=== PATIENT | female | born 1960 | race African-American/Black ===

== ENCOUNTER → 2018-02-22 | Day surgery (SDC) | payer BC ==
[~2018-02-22] MED LIST: LIDOCAINE 1% PF 2 ML VIAL. ID PRN; MIDAZOLAM HCL/PF 2 MG/2 ML VIAL. IV PRN; PROPOFOL 40 ML IV ONE; fentaNYL PF VIAL 100 MCG/2 ML VIAL IV PRN
[2018-02-22] MEDS: IV RINGERS,LACTATED 1000ML 1,000 ML IV SCH ×2 (06:17→08:45)
[2018-02-22 09:42] VITALS: BP 107/68
--- NOTE | 2018-02-22 11:04 | CONS ---
DATE OF CONSULTATION: 02/22/2018 REASON FOR CONSULTATION: Colorectal screening with a family history of colon cancer. HISTORY OF PRESENT ILLNESS: This is a 57-year-old -[place] female with past medical history significant for 3, para 3, seen for a screening colon exam. Bowel habits are regular without diarrhea or constipation. There has been no melena and/or hematochezia. Weight and appetite are stable. Family history is positive for colon cancer with her father in his early 70s. She is otherwise without additional complaints. PAST MEDICAL HISTORY: Noncontributory. MEDICATIONS: None. ALLERGIES: SULFA. PAST SURGICAL HISTORY: 3, para 3, with three C-sections. REVIEW OF SYSTEMS: Per records. PHYSICAL EXAMINATION: GENERAL: Well-nourished, well-developed -[place] female. VITAL SIGNS: Temperature is 98, pulse 93, respirations 18. HEENT: Normocephalic, atraumatic head. Pupils and extraocular muscles are not tested. Sclerae anicteric. NECK: Supple. LUNGS: Clear. CARDIOVASCULAR: Reveals an S1, S2 without S3, S4 or appreciable murmur. ABDOMEN: Reveals soft abdomen, normal bowel sounds without appreciable hepatosplenomegaly. EXTREMITIES: Reveal no cyanosis, clubbing or edema. IMPRESSION: Colorectal screening is warranted at this time with positive family history of colon cancer. Risks and benefits have been discussed with the patient including hemorrhage and perforation. She is willing to proceed. I would like to thank Dr. Alice Blevins for allowing us to consult and participate in the patient's care. JAZLYN DELEON MD DR: SKYLER/sudha JOB#: [id number] / [id number] ALICE Avalos MD
== END | disposition home or self-care (01) ==
LOC: SURG 08:11
PROVIDERS: ATTEND Internal Medicine Gastroenterology
DX: Z12.11 Encounter for screening for malignant neoplasm of colon (principal); K64.0 First degree hemorrhoids; Z80.0 Family history of malignant neoplasm of digestive organs; Z88.2 Allergy status to sulfonamides
CPT/HCPCS: 45378; J2704